=== PATIENT | female | born 1965 | race Caucasian/White ===

== ENCOUNTER → 2021-09-06 | Outpatient (CLI) | payer BC ==
[~2021-09-06] VITALS: Ht 167.6 cm; Wt 76.2 kg
[~2021-09-06] MED LIST: AMBEREN; AMRIX15 MG PO; COLACE 100 MG100 MG PO; DIAZEPAM 5 MG5 M1 PO; DIAZEPAM 5 MG5 MG PO; DOLOPHINE HCL5 MG PO; DULCOLAX; FIBER CHOICE1 EACH PO; HYDROCODON-ACE1 EAC5 PO; HYDROCORTISONE PO; METAMUCIL0.52 GM PO; MINIVELLE1 EAC1 TOP; MULTIVITAMINS PO; NEURONTIN 300300 M1 PO; NORTRIPTYLINE H50 M3 PO; NUCYNTA ER100 MG PO; ONDANSETRON ODT8 MG PO; OXYCODONE HCL15 MG PO; OXYCONTIN30 MG PO; PAMELOR25 MG PO; PAROXETINE HCL20 MG PO; PERCOCET 10-321 EACH PO; PREDNISONE PO; RELAFEN500 MG PO; ROXICODONE15 M1 PO; SAVELLA50 MG PO; STOOL SOFTENER50 MG PO; SYNTHROID88 MC1 PO; TYLENOL P.M. E1 EAC3 PO; VICODIN; VICODIN ES TAB1 EACH PO; VICODIN PO; XANAX 0.5 MG0.5 M1 PO
--- NOTE | ~2021-09-06 | HPC ---
[facility] [place] [address] PAIN MANAGEMENT CONSULTATION Name: ELLIE VILLA Room #: REG FLACO Varghese.#: [id number] Admission: 09/06/21 Attend Phys: Faraz Leslie DO Discharge: Date of : 61 Report #: [id number] THIS REPORT FOR: cc: Wilver Mckay MD, Faraz Hoang MD, DO ~ cc: Melyssa Mcclellan NP, ____ ____ DATE OF SERVICE: 09/06/2021 REFERRING PHYSICIAN: Melyssa Mcclellan, nurse practitioner and ____ CHIEF COMPLAINT: Left upper neck pain. HISTORY OF PRESENT ILLNESS: As you know, the patient is a pleasant 56-year-old female who reports longstanding history of progressively worsening left upper neck pain. As you are aware, the patient has had multiple neck surgeries to address cervical radicular symptoms and instability of the cervical spine. She has recently discussed her case with Neurosurgery, seeing nurse practitioner Melyssa Mcclellan for this ongoing left upper neck pain. She has point specific pain and they have requested that the patient undergo trigger point injections at her current pain physician's office, Dr. Mauro Webb. Apparently when the patient presented the referral for the trigger point injection in the area, she was advised that they would not be providing that injection as it was "too dangerous." She then returned to see nurse practitioner, Melyssa Mcclellan who then referred the patient on to our clinic to discuss the trigger point injection requested. The patient indicates that her pain has significantly increased over the last year. She states the pain would "grab her." She states lying down helps the pain. She states pain is usually not present in the morning hours, progresses throughout the day and becomes intolerable after about 4:00 or 5:00 in the afternoon. She can localize the pain within the left upper cervical area correlating to the obliquus capitis superior musculature group and the semispinalis capitis group. Due to lack of improvement with conservative treatment and given the fact that she has had significant cervical fusions, there is a concern that her symptoms may be myofascial in origin. She has been referred on to our clinic to discuss this trigger point injection. The patient reports today pain as momentary. She describes the pain as sharp. Places current pain score 9/10, daily average at 8-9/10, worst pain has been as 10/10. The patient states that being up and doing anything for any length of time as well as rotation of her neck to the left or lateral flexion to the left intensifies pain. Lying down and not moving tends to improve pain. She has been referred to our service to discuss interventional treatment options such as trigger point injections to address this point specific left upper neck pain. PAST MEDICAL HISTORY: 1. Anxiety. [address] [address] PAIN MANAGEMENT CONSULTATION Name: ELLIE VILLA Room #: REG [facility] [id number] Admission: 09/06/21 Attend Phys: Faraz Leslie DO Discharge: Date of : 61 Report #: [id number] 2. Osteoarthritis. 3. Insomnia. 4. Depression. 5. History of constipation. 6. Fatigue. 7. Fibromyalgia. 8. Irritable bowel syndrome. 9. Acquired hypothyroidism. 10. Adrenal insufficiency. 11. Head and neck pain. 12. Diabetes mellitus type 2. 13. Chest pain. PAST SURGICAL HISTORY: 1. Hysterectomy. 2. Two foraminotomies. 3. Multiple neck surgeries. 4. Colectomies. 5. Implantation of spinal cord stimulator. SOCIAL HISTORY: The patient denies tobacco, alcohol or IV or illicit drug use. She is on disability and has been so since 2013. She is not in litigation in regards to pain. She is accompanied by her who is present in room today. REVIEW OF SYSTEMS: Positive for weight gain, decrease in appetite, night sweats, fatigue and weakness, wearing corrective eyewear, hearing loss with tinnitus, chronic sinus problems with rhinitis, shortness of breath, angina pectoris, loss of appetite, changes in bowel movements, constipation, nocturia, rashes and itching, skin color changes, hair and nail changes, generalized body pain due to fibromyalgia and numbness and tingling sensations, memory loss with confusion, nervousness, depression, insomnia, thyroid disease, non-insulin dependent diabetes, excessive thirst, urination, heat and cold intolerance, slow to heal after cuts. All other review of systems negative per 12-point review of systems other than those listed in history of present illness. Pain impact score 24/70, mild to moderate interference of daily activities secondary to pain. ALLERGIES: CONTRAST AGENT, PENICILLIN, MORPHINE, ADHESIVE TAPE, KETAMINE, and VANCOMYCIN. CURRENT MEDICATIONS: Nortriptyline 50 mg p.o. q. 6 hours, diazepam 5 mg every 6 hours, oxycodone 15 mg b.i.d., OxyContin 30 mg b.i.d., estradiol 0.75 mg twice a week, prednisone 1 mg once a day, levothyroxine 88 mcg per day. [facility] [address] [place] [address] PAIN MANAGEMENT CONSULTATION Name: ELLIE VILLA Room #: REG [facility]#: [id number] Admission: 09/06/21 Attend Phys: Faraz Leslie DO Discharge: Date of : 61 Report #: [id number] IMAGING: No imaging available. PHYSICAL EXAMINATION: VITAL SIGNS: Blood pressure 103/65, pulse 84, respiratory rate 14 and unlabored. The patient is 97% on room air. Height 5 feet 6 inches tall, weight 168 pounds, BMI calculated 27.1. GENERAL: Well-developed, well-nourished, well-hydrated 56-year-old female appearing stated age, pain is rated today 9/10. HEENT: Normocephalic, atraumatic. Pupils equal, round and responsive. Speech is fluent. She is wearing a mask in compliance with COVID-19 regulations. She appears to be a good historian. LUNGS: Clear, no wheeze, rhonchi or rales. CARDIOVASCULAR: Regular. No appreciable gallop, no rub. ABDOMEN: Soft. EXTREMITIES: Show no clubbing, no cyanosis and no edema. MUSCULOSKELETAL: The patient has palpatory tenderness over the upper cervical area and the lower portion of the cranium. This equates to obliquus capitis superior muscular attachment as well as the attachments of the semispinalis capitis. There does not appear to be any transverse process tenderness. There is no translation of the cervical spine with pressure. There is no ecchymosis overlying the site. Deep palpation on the left causes intensification of pain, deep palpation of the right causes no change in symptoms. There is minimal movement of the cervical spine due to previous fusions. Cervical provocation testing is met with increasing pain over this left trigger point area. Upper extremity strength appears symmetrical 5/5. Muscle bulk and tone is equal and symmetrical in upper extremities. Deep tendon reflexes 2+/4 at biceps, brachialis and triceps. Spurling's test is negative bilaterally, though limited by the capability of the patient's mobility of the cervical spine due to previous surgeries. ASSESSMENT: 1. Myofascial pain. 2. Cervical spondylosis. 3. Chronic intractable pain. PLAN: 1. Based on today's physical exam and history the patient has provided, the description the patient uses in regards to pain, it would appear the symptoms are related to the myofascial area of the cervical region. It does appear that the tenderness to palpation on the left and the pain generator on the left is related to the attachment of either the splenius capitis muscle group and tendon structures or possibly the deeper obliquus capitis superior. I am unable to elicit any true cervical findings with deep palpation, though the point specific areas of pain are consistent with the tendinous attachments of the musculature of the cervical spine. This makes sense with the patient's previous fusions and stabilization of the cervical spine, which has limited a significant mobility of [address] [address] PAIN MANAGEMENT CONSULTATION Name: ELLIE VILLA Room #: REG FLACO Ang#: [id number] Admission: 09/06/21 Attend Phys: Faraz Leslie DO Discharge: Date of : 61 Report #: [id number] the cervical spine and has left her with chronic neck spasming. The patient at this point has been sent to our clinic to trial trigger point injections in the area. This should be an easily addressable issue with trigger points, whether or not the patient would see good and prolonged benefit would remain to be seen. We have discussed with the patient the trigger point injections today. She is amenable to undergo the procedure. Due to third republican payer authorization restrictions, we have to obtain prior authorization before the patient could undergo the trigger point injections in this left upper area of the cervical spine. We will obtain those authorizations as quickly as possible and have the patient return to undergo the requested procedure. The Neurosurgery team is awaiting their response to this injection to determine whether or not surgical options and continuation of the fusion into the upper cervical region would be necessary to decrease mobility in the area and thus improve overall pain. The trigger point injections if successful, would be a more conservative treatment approach. We will await the authorization once it has been completed. 2. No medication changes made at today's visit. The patient will continue current medical therapy as prior prescribed. 3. We will see the patient back in followup visit once we have achieved the authorization for the trigger point injections requested by the Neurosurgery team. I am hopeful this authorization will be done quickly and we will have her return undergoing the procedure. 4. We wish to thank nurse practitioner, Melyssa Mcclellan and ____ for the opportunity to see the patient in consultation. We will keep you apprised of response to treatment as we address this myofascial issue. Again, we wish to thank you for the opportunity to see the patient in consultation. By: [id number] Faraz Leslie DO /elian
[2021-09-06 15:06] VITALS: BP 103/65
--- NOTE | 2021-09-06 16:18 | NUR ---
Pain Clinic Assessment: 1. History of Osteoarthritis: Not Applicable History of Rheumatoid Arthritis: Not Applicable 2. Height: 5 ft. 6 in. 167.6 cm. Weight: 168.0 lb. oz. 76.204 kg. Patient's BMI: 27.1 3. Vital Signs: BP: 103/65 Pulse: 84 Resp: 14 Temp: 02 Sat: 97 ECG Mon: 4. Pain Intensity: 9 5. Fall Risk: Dizziness: N Needs help standing or walking: N Fallen in the last 3 months: Y Fall risk comments: 6. Patient on Blood Thinner: None 7. History of Hypertension: Y 8. Opioid Therapy greater than 6 weeks: N Opiate Contract Signed: 9. Risk Assessment Tool Provided: LOW 10. Functional Assessment Tool: 11. Recreational Drug Use: Never Drug Type: Tobacco Use: Never Smoker Tobacco Type: Amount or Packs/day: How Many Years: Alcohol Use: No Frequency: Quant:
== END ==
LOC: PAIN 10:09
PROVIDERS: ATTEND Anesthesiology Pain Medicine
DX: M47.812 Spondylosis without myelopathy or radiculopathy, cervical region (principal); M79.18 Myalgia, other site; G89.29 Other chronic pain; Z88.0 Allergy status to penicillin; Z79.899 Other long term (current) drug therapy; Z88.8 Allergy status to other drugs, medicaments and biological substances

== ENCOUNTER → 2021-09-14 | Outpatient (CLI) | payer BC ==
[~2021-09-14] VITALS: Ht 167.6 cm; Wt 79.6 kg
--- NOTE | ~2021-09-14 | HPC ---
[address] [address] PAIN MANAGEMENT CONSULTATION Name: ELLIE VILLA Room #: REG FLACO Varghese.#: [id number] Admission: 09/14/21 Attend Phys: Faraz Leslie DO Discharge: Date of : 61 Report #: [id number] THIS REPORT FOR: cc: Wilver Mckay MD, Paul Piezas MD Johnson, James E. DO ~ cc: Melyssa Cazares ARNP DATE OF SERVICE: 09/14/2021 CHIEF COMPLAINT: Left upper neck pain. HISTORY OF PRESENT ILLNESS: As you know, the patient is a pleasant 56-year-old female reporting longstanding history of progressively worsening left upper neck pain. The patient was referred to our clinic to discuss undergoing trigger point injection to address this left upper neck pain. Pain is localized at the base of the occiput and appears to correlate to the obliquus capitis and splenius capitis insertion sites. We are required to obtain prior authorization for the patient to undergo the procedure. We have received that authorization. She returns today to undergo the requested trigger point injection. She is placing her current pain score at 8/10. She has suffered no new injury, no new trauma or any changes in medication management since our last visit. ALLERGIES: CONTRAST AGENT, PENICILLIN, MORPHINE, ADHESIVE TAPE, KETAMINE AND VANCOMYCIN. CURRENT MEDICATIONS: See extensive list in chart. SOCIAL HISTORY: The patient denies tobacco, alcohol or IV or illicit drug use. She is on disability and has been so since 2013. Unaccompanied today. IMAGING: No new imaging available. PHYSICAL EXAMINATION: VITAL SIGNS: Blood pressure 106/69, pulse 89, respiratory rate 16 and unlabored. The patient is 96% on room air. Height 5 feet 6 inches tall, weight 175.4 pounds, BMI calculated at 28.3. GENERAL: Well-developed, well-nourished, well-hydrated 56-year-old female appearing stated age. She is in no acute distress. Awake, alert and oriented x3. Current pain score is 8/10. HEENT: Normocephalic, atraumatic. Pupils are round. She is wearing a mask in compliance with COVID-19 regulations. EXTREMITIES: Show no clubbing, no cyanosis, no edema. MUSCULOSKELETAL: Well-healed surgical scars over the lower cervical area. Deep palpation over the lower occiput area with the attachment points of the obliquus capitis and splenius capitis is tender to palpation on the left, negative on the right. There does not appear to be any tenderness to the transverse processes [address] [address] PAIN MANAGEMENT CONSULTATION Name: ELLIE VILLA Room #: REG [facility]#: [id number] Admission: 09/14/21 Attend Phys: Faraz Leslie DO Discharge: Date of : 61 Report #: [id number] when comparing left to right. The patient has limited range of motion of the cervical region. Upper extremity strength appears symmetrical today. ASSESSMENT: 1. Myofascial pain. 2. Cervical spondylosis. 3. Chronic neck pain, status post fusions. 4. Chronic intractable pain. PLAN: 1. The patient returns today in followup visit to undergo the requested trigger point injection that had been requested by Dr. Gumaro Mckay and his nurse practitioner, Melyssa Mcclellan. We have obtained the authorization for the patient to undergo the procedure. The patient has returned to undergo that injection today. The patient has been advised the risks and benefits of trigger point injections. These risks include but are not necessarily limited to bleeding, bruising, infection, worsening of pain, no relief of pain, also risk of temporary or permanent muscle weakness, temporary or permanent nerve damage and . The patient states she understood and wished to proceed. 2. No medication changes made at today's visit. We recommend the patient to continue current medical therapy as prior prescribed. 3. The patient will follow up with Neurosurgery in regards to the treatment and its efficacy. They are discussing surgical options with the patient and if the patient is seeing good improvement with the trigger point injections and prolonged benefit, we would recommend continuing trigger point injections. If the trigger point injection does provide good benefit, but her symptoms reoccur, the possible use of Botox could be quite beneficial. We do not provide Botox injections, but the patient could be referred out to trial that type of treatment as a way to alleviate the strain of the musculature on the left side. Surgical options have been discussed with the patient and they will discuss those at followup visit. PROCEDURE NOTE DESCRIPTION OF PROCEDURE: Left upper neck trigger point injection. After obtaining written consent, the patient was placed in a seated position. By palpating, using a single finger, one specific area of pain was identified, that was just at the base of the occiput and approximately 2 cm lateral to the cervical spine that reproduced the patient's typical radiating pain pattern. The trigger points were located in the tenderness areas and musculature of the left splenius capitis and obliquus capitis area. So the area was then prepped and draped with aseptic technique using chlorhexidine. A 27-gauge 1-1/4-inch needle was then advanced towards the painful area until the patient's typical radiating pain pattern was reproduced. After negative aspiration for heme, 5 mL of a solution containing 1 mL 40 mg per mL, 40 mg total triamcinolone and 4 mL [facility] [address] [place] [address] PAIN MANAGEMENT CONSULTATION Name: ALLENELLIE CHAIDEZ Room #: REG CL Sav#: [id number] Admission: 09/14/21 Attend Phys: Faraz Leslie DO Discharge: Date of : 61 Report #: [id number] of bupivacaine 0.5% injected in a fanned out distribution. Total volume of 5 mL being provided. Sterile bandage was then placed over the injection site. The patient tolerated the procedure well, carefully escorted to recovery room in stable condition. There were no apparent complications. After meeting our discharge criteria, the patient was discharged home. By: [id number] Faraz Leslie DO /nt
[2021-09-14 08:41] VITALS: BP 106/69
--- NOTE | 2021-09-14 09:08 | NUR ---
Pain Clinic Assessment: 1. History of Osteoarthritis: Not Applicable History of Rheumatoid Arthritis: Not Applicable 2. Height: 5 ft. 6 in. 167.6 cm. Weight: 175.4 lb. oz. 79.561 kg. Patient's BMI: 28.3 3. Vital Signs: BP: 106/69 Pulse: 89 Resp: 16 Temp: 02 Sat: 96 ECG Mon: 4. Pain Intensity: 8 5. Fall Risk: Dizziness: N Needs help standing or walking: N Fallen in the last 3 months: N Fall risk comments: 6. Patient on Blood Thinner: None 7. History of Hypertension: Y 8. Opioid Therapy greater than 6 weeks: N Opiate Contract Signed: 9. Risk Assessment Tool Provided: LOW 10. Functional Assessment Tool: 11. Recreational Drug Use: Never Drug Type: Tobacco Use: Never Smoker Tobacco Type: Amount or Packs/day: How Many Years: Alcohol Use: No Frequency: Quant:
== END ==
LOC: PAIN 09-13 14:08
PROVIDERS: ATTEND Anesthesiology Pain Medicine
DX: M54.2 Cervicalgia (principal); M79.18 Myalgia, other site; M47.812 Spondylosis without myelopathy or radiculopathy, cervical region; G89.28 Other chronic postprocedural pain; Z79.899 Other long term (current) drug therapy; Z88.0 Allergy status to penicillin; Z88.5 Allergy status to narcotic agent; Z88.6 Allergy status to analgesic agent; Z88.8 Allergy status to other drugs, medicaments and biological substances